=== PATIENT | male | born 1950 | race Caucasian/White ===

== ENCOUNTER → 2017-06-17 | Outpatient (CLI) | payer OTHER | LOC: GMAL 10:50 | PROVIDERS: ATTEND Family Medicine | DX: D51.3 Other dietary vitamin B12 deficiency anemia (principal); E55.9 Vitamin D deficiency, unspecified ==

== ENCOUNTER → 2017-12-08 | Outpatient (CLI) | payer OTHER | END | disposition home or self-care (01) | LOC: GMAL 10:27 | PROVIDERS: ATTEND Family Medicine | DX: D51.3 Other dietary vitamin B12 deficiency anemia (principal); Z12.5 Encounter for screening for malignant neoplasm of prostate; E55.9 Vitamin D deficiency, unspecified | CPT/HCPCS: 82306; 82607; G0103 ==

== ENCOUNTER → 2017-12-31 | Outpatient (CLI) | payer OTHER | LOC: GMAL 10:52 | PROVIDERS: ATTEND Family Medicine | DX: R97.20 Elevated prostate specific antigen [PSA] (principal) ==

== ENCOUNTER → 2018-11-17 | Outpatient (CLI) | payer OTHER | LOC: LAB.O 10:29 | PROVIDERS: ATTEND Internal Medicine Gastroenterology | DX: R94.5 Abnormal results of liver function studies (principal) ==

== ENCOUNTER → 2019-08-23 | Outpatient (CLI) | payer OTHER | LOC: GMAL 11:31 | PROVIDERS: ATTEND Family Medicine | DX: D51.3 Other dietary vitamin B12 deficiency anemia (principal); E55.9 Vitamin D deficiency, unspecified; I10 Essential (primary) hypertension; E11.9 Type 2 diabetes mellitus without complications; E78.49 Other hyperlipidemia; R97.20 Elevated prostate specific antigen [PSA] ==

== ENCOUNTER → 2019-09-14 | Outpatient (CLI) | payer OTHER | LOC: GMAL 10:51 | PROVIDERS: ATTEND Family Medicine | DX: R97.20 Elevated prostate specific antigen [PSA] (principal) ==

== ENCOUNTER → 2019-09-29 | Outpatient (CLI) | payer OTHER ==
--- NOTE | 2019-09-29 10:40 | MRI ---
EXAM DESCRIPTION: MRI left shoulder CLINICAL HISTORY: Left shoulder pain COMPARISON: None. TECHNIQUE: Multiplanar, multisequence MR images of the left shoulder FINDINGS: Moderate acromioclavicular osteoarthritis with deformity of the distal clavicle, likely remote posttraumatic. Small joint effusion. Marginal osteophyte from the distal clavicle indenting the supraspinatus. Lateral downsloping of the acromion with small acromial spur Subcoronal subdeltoid bursal fluid and synovitis/bursitis Supraspinatus tendinosis. Bursal surface fraying. Minimal cystic change in the horizontal facet greater tuberosity. Muscle volume is normal with grade 1 fatty streaking Infraspinatus tendon intact. Normal muscle volume and grade 1 fatty streaking. Teres minor tendon intact. Moderate muscle volume loss with severe grade 2 fatty infiltration, likely idiopathic chronic denervation. No abnormality of the deltoid. Narrow coracohumeral interval of 7 mm predisposing to chronic coracoid impingement of the subscapularis tendon. Tendinosis with low-grade partial articular and interstitial tear of the insertion. Minimal osseous irregularity and edema in the lesser tuberosity. Muscle volume is normal with grade 1 fatty infiltration Long head biceps tendon normal in the bicipital groove. Intra-articular impingement tendinosis. Degenerative tear of the anchor and superior labrum with intralabral signal and fraying along the base of the labrum with sublabral glenoid rim osteophyte and minimal edema. No acute labral detachment otherwise No high-grade glenohumeral chondrosis or chronic osteochondral lesion IMPRESSION: Acromioclavicular osteoarthritis. 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
== END ==
LOC: MRI 08:35
PROVIDERS: ATTEND Family Medicine
DX: M19.012 Primary osteoarthritis, left shoulder (principal); M75.32 Calcific tendinitis of left shoulder; M75.22 Bicipital tendinitis, left shoulder

== ENCOUNTER 2020-04-25 15:36 | Observation (INO) | payer OTHER ==
[~2020-04-25 15:36] MED LIST: DEXAMETHASONE INJ 10 MG/ML VIAL ONE; KETOROLAC TROMETHAMINE INJ 30 MG/ML VIAL ONE; LIDOCAINE 1% 10 ML VIAL INJ ONE; MAGNESIUM SULFATE INJ 1 GM/2 ML VIAL ONE; METOCLOPRAMIDE HCL INJ 10 MG/2 ML VIAL ONE; PROPOFOL 200 MG/20 ML VIAL IV ONE; SODIUM CHLORIDE 0.9% 50 ML VIAL ONE
[2020-04-25] MEDS ORDERED: SODIUM CHLORIDE 0.9% 1000ML 1,000 ML IVS ONE (15:45)
[2020-04-25] MEDS ORDERED: CEFEPIME 2 GM in SODIUM CHL 0.9% 100ML MINI-BAG 100 ML IVPB ONE (15:47)
[2020-04-25] MEDS ORDERED: ACETAMINOPHEN IV 1000MG 1,000 MG in PREMIX BOTTLE 1 BOTTLE IVPB ONE (15:47)
--- NOTE | 2020-04-25 15:57 | ED.PDOC ---
History of Present Illness - General Chief Complaint: Abdominal Pain Stated Complaint: RLQ abdominal pain x one day Time Seen by Provider: 04/25/20 15:42 Information Source: patient Exam Limitations: no limitations - History of Present Illness Initial Comments: 70 yo M with PMH sig for HTN, HLD, DM who presents with constant, nonradiating, RLQ pain onset this morning, described as a cramp, no alleviating or aggreviating factors. Denies f/c, cough, congestion, CP, SOB, COVID exposure, sick contacts, body aches, sore throat, n/v/d, constipation, urinary sx. Last NPO intake at 2pm, two pieces of toast. Review of Systems - Review of Systems Constitutional: Denies: chills, fever EENTM: States: no symptoms reported Respiratory: Denies: cough, short of breath Cardiology: Denies: chest pain, palpitations, syncope Gastrointestinal/Abdominal: States: abdominal pain. Denies: diarrhea, nausea, vomiting Genitourinary: Denies: dysuria, frequency, hematuria Musculoskeletal: Denies: back pain, muscle pain Skin: Denies: lesions, rash Neurological: Denies: headache, numbness, weakness Endocrine: Denies: increased thirst, increased urine Hematologic/Lymphatic: Denies: easy bleeding, easy bruising Family Medical History - Family History Mother Family History: Unknown Physical Exam - Physical Exam General Appearance: Alert, Comfortable, No apparent distress, Well Developed, Well Nourished Eyes, Ears, Nose, Throat Exam: normal ENT inspection Neck: full range of motion, supple Respiratory: chest non-tender, lungs clear, normal breath sounds, no respiratory distress, no accessory muscle use Cardiovascular/Chest: normal peripheral pulses, no edema, no gallop, no JVD, tachycardia - mild Peripheral Pulses: No deficit Gastrointestinal/Abdominal: tenderness - RLQ, guarding; no rebound, rigidity Male Genitalia: normal genitalia Back Exam: no CVA tenderness Extremity: normal range of motion, non-tender, normal inspection, no pedal edema Neurologic: no motor/sensory deficits, alert, normal mood/affect Skin Exam: normal color, warm/dry Progress - Progress Progress: 04/25/20 17:23 Discussed with radiologist, CT concerning for acute appendicitis. Dr. Samayoa at pt's bedside. Updated pt on the results, need for OR and admission. Pt agrees with plan. All questions and concerns addressed. Subsequently discussed with Dr. Carter, will take to OR in morning but will evaluate pt tonight and review imaging, requests zosyn and IV hydration. 04/25/20 17:26 Discussed with Rian, midlevel for admitting provider, accepts for admission. Shauna Banks MD Emergency Medicine Physician Billing Number [id number] - Results/Orders Results/Orders: 04/25/20 15:43 URINALYSIS Stat 04/25/20 15:47 Hold Metformin x 48Hrs [id number] 04/25/20 16:00 EKG STAT 04/25/20 16:30 BLOOD CULTURE Stat 04/25/20 17:27 ED Intent to Admit Routine Laboratory Results - last 24 hr 04/25/20 04/25/20 04/25/20 16:02 16:02 16:02 WBC 12.6 H RBC 4.82 Hgb 14.4 Hct 42.8 MCV 88.8 MCH 29.9 MCHC 33.7 RDW 15.2 H Plt Count 234 MPV 8.4 Absolute Neuts (auto) 10.10 H Absolute Lymphs (auto) 1.70 Absolute Monos (auto) 0.60 Absolute Eos (auto) 0.10 Absolute Basos (auto) 0.00 Neutrophils % 80.5 H Lymphocytes % 13.7 L Monocytes % 4.6 Eosinophils % 0.8 L Basophils % 0.4 Sodium 136 Potassium 3.9 Chloride 105 Carbon Dioxide 24 Anion Gap 10.9 L BUN 23 H Creatinine 0.89 BUN/Creatinine Ratio 25.8 H Random Glucose 140 H Serum Osmolality 278.0 Lactic Acid 1.5 Calcium 9.0 Total Bilirubin 0.7 AST 41 ALT 48 Alkaline Phosphatase 45 Serum Total Protein 7.5 Albumin 4.3 Globulin 3.2 Albumin/Globulin Ratio 1.3 CT abd/pelvis: EXAM DESCRIPTION: CT ABDOMEN AND PELVIS WITH CONTRAST CLINICAL HISTORY: RLQ pain COMPARISON: December 10, 2011 TECHNIQUE: CT of the abdomen and pelvis are performed during IV bolus administration of nonionic contrast. Oral contrast media was not administered This exam was performed according to our departmental dose-optimization program, which includes automated exposure control, adjustment of the mA and/or kV according to patient size and/or use of iterative reconstruction technique. FINDINGS: Lung bases demonstrate mild fibrotic lung disease but are otherwise clear with at least mild cardiomegaly present. Hepatomegaly with marked fatty infiltration of liver diffusely is present without focal cystic or solid mass. A well distended gallbladder without wall thickening or edema or visible stones or ductal dilation is noted. A small normal spleen is present. No significant abdominal or pelvic ascites seen. Right adrenal gland is unremarkable. The left adrenal gland demonstrates a 3.7 cm mass partially soft tissue density and partially fatty in appearance unchanged from 2012 study and most consistent with a benign adenoma. No further evaluation is recommended. Pancreas normally enhances without cyst or mass. The kidneys intensely enhance with no abnormality noted on the right. On the left a nonobstructing 1 cm calculus in a lower pole calyx is present without hydronephrosis. No cystic or solid lesions noted. Small and large bowel caliber is normal without obstruction or ileus. Extensive left colonic diverticulosis is noted. An inflammatory process along the posterior margin of the cecum and proximal ascending colon is present with at least a small segment of the indistinct enlarged appendix is present with a segment of the appendix appearing to be slightly greater than 1 cm in diameter. Acute appendicitis with inflammatory changes but no drainable abscess or large fluid collection suspected. Results telephoned to the emergency room physician at the time of interpretation. No free abdominal air or fluid noted. Distended bladder with marked prostatic hypertrophy is apparent. The anterior abdominal wall and inguinal regions are unremarkable. Marked degenerative change and moderate levoscoliosis of the lumbar spine apparent. Multilevel degenerative disc disease and likely significant spinal canal stenosis particularly at L2-3 and L3-4 suggested on sagittal reconstructions. IMPRESSION: 1. Right lower quadrant inflammatory process in the retrocecal and retrocolic region with fluid and air distended short segment of the appendix identified consistent with acute appendicitis. Free abdominal air or drainable fluid collection or abscess is not apparent. An appendicolith is not identified. 2. Nonobstructing 1 cm lower pole stone left kidney without hydronephrosis. 3. Marked hepatomegaly and fatty replacement of the liver. 4. 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 5. Extensive left colonic diverticulosis without acute diverticulitis. Electronically signed by: Shimon Hennessy MD 04/25/2020 5:23 PM CDT Vital Signs (72 hours) 04/25/20 04/25/20 04/25/20 15:40 15:43 16:30 Temperature 100.9 F H Pulse Rate [ 101 H 101 H 75 Pulse ox] Respiratory 18 18 21 Rate Blood Pressure 177/118 140/80 [L brachial] O2 Sat by Pulse 97 95 Oximetry 04/25/20 17:30 Temperature 101.9 F H Pulse Rate [ 81 Pulse ox] Respiratory 20 Rate Blood Pressure 144/85 [L brachial] O2 Sat by Pulse 95 Oximetry - EKG/XRAY/CT EKG: Sinus, no ST T wave changes Comments: NSR rate of 96, artifact Departure - Departure Clinical Impression: Hepatomegaly, Diverticulosis, Adrenal mass, Kidney stone Acute appendicitis Qualifiers: Acute appendicitis type: with localized peritonitis Appendicitis gangrene presence: without gangrene Appendicitis perforation presence: without pe rforation Appendicitis abscess presence: without abscess Qualified Code(s): K35.30 - Acute appendicitis with localized peritonitis, without perforation or gangrene Time of Disposition: 17:15 Disposition: Admit Patient Condition: Fair
[2020-04-25] MEDS ORDERED: SODIUM CHL 0.9% 100ML MINI-BAG 100 ML IVPB ONE (16:38)
[2020-04-25] MEDS ORDERED: ACETAMINOPHEN IV 1000MG 100 ML ONE (16:49)
--- NOTE | 2020-04-25 17:25 | CT ---
EXAM DESCRIPTION: CT ABDOMEN AND PELVIS WITH CONTRAST CLINICAL HISTORY: RLQ pain COMPARISON: December 10, 2011 TECHNIQUE: CT of the abdomen and pelvis are performed during IV bolus administration of nonionic contrast. Oral contrast media was not administered This exam was performed according to our departmental dose-optimization program, which includes automated exposure control, adjustment of the mA and/or kV according to patient size and/or use of iterative reconstruction technique. FINDINGS: Lung bases demonstrate mild fibrotic lung disease but are otherwise clear with at least mild cardiomegaly present. Hepatomegaly with marked fatty infiltration of liver diffusely is present without focal cystic or solid mass. A well distended gallbladder without wall thickening or edema or visible stones or ductal dilation is noted. A small normal spleen is present. No significant abdominal or pelvic ascites seen. Right adrenal gland is unremarkable. The left adrenal gland demonstrates a 3.7 cm mass partially soft tissue density and partially fatty in appearance unchanged from 2012 study and most consistent with a benign adenoma. No further evaluation is recommended. Pancreas normally enhances without cyst or mass. The kidneys intensely enhance with no abnormality noted on the right. On the left a nonobstructing 1 cm calculus in a lower pole calyx is present without hydronephrosis. No cystic or solid lesions noted. Small and large bowel caliber is normal without obstruction or ileus. Extensive left colonic diverticulosis is noted. An inflammatory process along the posterior margin of the cecum and proximal ascending colon is present with at least a small segment of the indistinct enlarged appendix is present with a segment of the appendix appearing to be slightly greater than 1 cm in diameter. Acute appendicitis with inflammatory changes but no drainable abscess or large fluid collection suspected. Results telephoned to the emergency room physician at the time of interpretation. No free abdominal air or fluid noted. Distended bladder with marked prostatic hypertrophy is apparent. The anterior abdominal wall and inguinal regions are unremarkable. Marked degenerative change and moderate levoscoliosis of the lumbar spine apparent. Multilevel degenerative disc disease and likely significant spinal canal stenosis particularly at L2-3 and L3-4 suggested on sagittal reconstructions. IMPRESSION: 1. Right lower quadrant inflammatory process in the retrocecal and retrocolic region with fluid and air distended short segment of the appendix identified consistent with acute appendicitis. Free abdominal air or drainable fluid collection or abscess is not apparent. An appendicolith is not identified. 2. Nonobstructing 1 cm lower pole stone left kidney without hydronephrosis. 3. Marked hepatomegaly and fatty replacement of the liver. 4. 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 5. Extensive left colonic diverticulosis without acute diverticulitis. Electronically signed by: Shimon Hennessy MD 04/25/2020 5:23 PM CDT
[2020-04-25] MEDS ORDERED: ACETAMINOPHEN IV 1000MG 100 ML IVPB ONE (18:00)
[2020-04-25] MEDS ORDERED: MORPHINE SULFATE INJ 10 MG/ML VIAL IV PRN (18:58)
[2020-04-25] MEDS ORDERED: GLUCAGON INJ 1 MG VIAL SUBCU PRN (20:17)
[2020-04-25] MEDS ORDERED: DEXTROSE 50% 25 GM/50 ML SYG IV PRN (20:17)
[2020-04-25] MEDS ORDERED: SODIUM CHL 0.9% 50ML MIN-BAG+ 50 ML IVPB ONE (20:36)
[2020-04-25] MEDS: cefOXitin SODIUM 1 GM in SODIUM CHL 0.9% 50ML MIN-BAG+ 50 ML IVPB SCH (20:43)
[2020-04-25] MEDS: KCL 20MEQ/D5 1/2NS 1,000 ML IVS PRN (20:52)
[2020-04-25] MEDS: LISINOPRIL 10 MG TAB PO SCH (20:53)
[2020-04-25] MEDS: INSULIN LISPRO 100 UNITS/ML PEN SUBCU SCH (21:00)
[2020-04-25] MEDS: GLIMEPIRIDE 2 MG TAB PO SCH (21:38)
[2020-04-25] MEDS ORDERED: SODIUM CHLORIDE 0.9% (FLUSH) 10 ML SYG IV PRN (21:47)
[2020-04-25] MEDS ORDERED: IV SET AND CAP CHANGE INJ INJ SCH (22:00)
[2020-04-26] MEDS: cefOXitin SODIUM 1 GM in SODIUM CHL 0.9% 50ML MIN-BAG+ 50 ML IVPB SCH ×3 (00:31→12:36)
[2020-04-26] MEDS ORDERED: SODIUM CHL 0.9% 50ML MIN-BAG+ 50 ML IVPB ONE (04:20)
[2020-04-26] MEDS ORDERED: PANTOPRAZOLE SODIUM IV 40 MG VIAL IV ONE (05:00)
[2020-04-26] MEDS ORDERED: BUPIVACAINE 0.5% W/EPI 30 ML VIAL INJ ONE (06:07)
[2020-04-26] MEDS: INSULIN LISPRO 100 UNITS/ML PEN SUBCU SCH ×2 (06:21→12:07)
[2020-04-26] MEDS ORDERED: fentaNYL CITRATE INJ 50 MCG/ML 2 ML AMP ONE (06:31)
[2020-04-26] MEDS ORDERED: MIDAZOLAM INJ 2 MG/2 ML VIAL ONE ×2 (06:31→06:52)
[2020-04-26] MEDS ORDERED: SUGAMMADEX SODIUM 200 MG/2 ML VIAL IV ONE (06:31)
[2020-04-26] MEDS ORDERED: KETAMINE HCL 100 MG/ML VIAL ONE (06:31)
[2020-04-26] MEDS ORDERED: ROCURONIUM BROMIDE 10 MG/ML VIAL ONE (06:32)
[2020-04-26] MEDS: GLIMEPIRIDE 2 MG TAB PO SCH (07:17)
[2020-04-26] MEDS ORDERED: ELECTROLYTE-A 1,000 ML IVS ONE (07:42)
--- NOTE | 2020-04-26 07:51 | CONS ---
SUPERVISING PHYSICIAN: Shimon Monaco MD CHIEF COMPLAINT: Right lower quadrant abdominal pain and acute appendicitis. REASON FOR CONSULTATION: Medical consultation, preoperative evaluation for laparoscopic appendectomy. HISTORY OF PRESENT ILLNESS: Mr. Palomino is a 70-year-old male patient who presented to the Emergency Room today with complaints of right lower quadrant pain. He endorses that the pain started this morning and was persistent in its onset, nothing he could do would alleviate the pain. He does have a history of hypertension, hyperlipidemia and diabetes mellitus. He denies any congestion, chest pain or shortness of breath or any high risk or exposure to COVID-19 contacts, no nausea, vomiting or diarrhea or constipation. His last intake prior to coming to the Emergency Room was around 2 o'clock, he had 2 pieces of toast. On initial presentation, he was running a fever of 101.9 but showing to be hemodynamically stable with a blood pressure of 144/85, heart rate 81, oxygen saturation 95% on room air. Laboratory studies did show he had a white count of12,600 with a left shift. Chemistries showed a slightly elevated BUN, otherwise all electrolytes, creatinine and liver functions were within normal limits. Lactic acid 1.5. Urinalysis just showed a small amount of blood with 5 to 10 RBCs and trace leukocyte esterase. He had a CT of the abdomen and pelvis in the Emergency Room prior to admission with contrast and per radiology interpretation was note of findings consistent with acute appendicitis but no free abdominal air or drainable fluid collection or abscess apparent. After CT findings and clinical presentation consistent with acute appendicitis, Dr. Carter, general surgeon, was consulted in the Emergency Room and recommended the patient be taken to the operating room either today or tomorrow, thus patient is going to be admitted and placed in observation for further workup and surgical clearance with anticipated laparoscopic appendectomy. The patient was stable at time of admission. PAST MEDICAL HISTORY: 1. Hyperlipidemia. 2. Hypertension 3. Type 2 diabetes mellitus poorly controlled with last A1C at 7.1. 4. History of concussion after a fall in 2011. PAST SURGICAL HISTORY: 1, Left knee arthroscopy for torn cartilage. 2. Tonsillectomy. 3. Cervical spine surgery for C5 herniated disk. 4. Right knee, partial medial meniscectomy. 5. Right shoulder rotator cuff surgery with distal clavicle resection, subacromial decompression open tendinosis of the long head of the biceps tendon. 6. Lumbar epidural steroid injection. 7. Bilateral knee medial compartmental arthroplasty in 2019. CURRENT MEDICATIONS: 1. Lisinopril 20 mg twice a day. 2. Metformin 500 mg twice a day. 3. Simvastatin 40 mg q.h.s. 4. Glimepiride 4 mg b.i.d. 5. Diltiazem extended release 360 mg daily. 6. Troglitazone 30 mg daily. ALLERGIES: Amlodipine, Jardiance. FAMILY HISTORY: Father at age 24 secondary to sudden cardiac . Mother at 63, had breast cancer and heart problems. He has 3 brothers, all healthy. One daughter is healthy, one son is healthy. SOCIAL HISTORY: The patient works for the [employer] in [employer]. He is , at age 53 from breast cancer. He has 2 children. He has never smoked and does not drink alcohol but on a very rare occasion. He lives in [place], [place]. He denies any illicit drug use. REVIEW OF SYSTEMS: CONSTITUTIONAL: Positive for fever, chills, denies any general malaise or unexplained weight loss. HEENT: Denies headaches, vision changes, sore throat, nasal congestion, earache. RESPIRATORY: Denies coughing, shortness of breath or wheezing. CARDIOVASCULAR: Denies chest pain, palpitations, syncopal episodes. GI: As noted in history of present illness, right lower quadrant abdominal pain. Denies nausea, vomiting or diarrhea. : Denies dysuria, hematuria or polyuria. MUSCULOSKELETAL: Denies back pain, muscle pain or general arthralgias. SKIN: Denies lesions, rashes, moles or unexplained changes. NEUROLOGICAL: Denies headaches, numbness, weakness, ataxia, seizures or other deficits. HEMATOLOGIC: Denies easy bruising, unexplained bleeding or transfusion reactions. PHYSICAL EXAMINATION: VITAL SIGNS: Temperature 101.9, heart rate 81, blood pressure 144/85, respirations 20, oxygen saturation 95% on room air. GENERAL: The patient is resting comfortably, did not appear to be in acute distress. He is alert. HEENT: Tympanic membranes clear bilaterally. Oropharynx pink and moist without lesions. NECK: Supple, non-tender, full range of motion, no jugular venous distention. HEART: Regular rate and rhythm without appreciable murmurs, rubs, or gallops. ABDOMEN: Soft with tenderness noted to the right lower quadrant with some guarding but no rebound, rigidity or peritoneal signs. BACK: No CVA tenderness or vertebral tenderness. EXTREMITIES: No cyanosis, clubbing, or edema. NEUROLOGIC: Cranial nerves II through XII grossly intact. Facial features symmetrical. Extraocular movements within normal limits, no notable nystagmus. He was alert and oriented x 3. LABORATORY: White count elevation at 12,600, hemoglobin 14.4, hematocrit 42.8, platelet count 234,000, differential does show a left shift. Chemistries show normal electrolytes. Anion gap 10.9, BUN 23, creatinine 0.89, glucose 144, lactic acid 1.5. Liver functions, calcium and bilirubin were all within normal limits. Urinalysis showed a small amount of blood with trace of leukocyte esterase with microscopic revealing 5 to 10 RBCs, 1 to 3 WBCs, no epithelials, no bacteria. He did have a group A strep that was positive. MICROBIOLOGY: Blood cultures are negatives as of admission. Influenza A and B by PCR were pending. RADIOLOGY: Chest x-ray showed no cardiopulmonary abnormalities per radiologic interpretation. Abdominopelvic CT per radiologic interpretation showed findings consistent with acute appendicitis, but no abscess, free abdominal air or drainable collection. There was also note of nonobstructing 1 cm lower pole stone in the left kidney without hydronephrosis. There was also noted some marked hepatomegaly with fatty replacement of the liver. 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 EKG in the Emergency Room showed a normal sinus rhythm with no ST or T wave changes to acute ischemic or injury pattern. No acute changes when compared to EKG done 01/17/19. Heart rate 96, QT interval was 362 with QTC of 457, [place] interval was within normal limits. IMPRESSION: 1. Acute appendicitis with CT findings consistent with acute appendicitis. 2. Group A strep pharyngitis with positive strep screen. 3. Diabetes mellitus, type 2, on oral therapy. 4. Hypertension. 5. Chronic diverticulosis without any acute findings of diverticulitis on current CT scan. 6. 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 7. Marked steatosis of the liver, needs to be followed as an outpatient. 8. Incidental finding of a nonobstructive nephrolithiasis of the left kidney without any mention of hydronephrosis. PLAN: Mr. Palomino is placed in observation for anticipation of a laparoscopic appendectomy in the morning. Dr. Carter has consulted with us to help with management of his diabetes and other medical issues. At this point, the patient is showing no complicating factors and should do well operatively. We will continue to follow his blood sugars and blood pressure and management of his chronic medications preoperatively and postoperatively. Dr. Carter has ordered IV fluids and antibiotic coverage with Cefoxitin q.6h. He will be provided with pain management as needed. He has order for Protonix in the morning preoperatively with anesthesia. We will review his medications and resume those as appropriate to care postoperatively. He will be on DVT prophylaxis postoperatively as needed. I anticipate though that he will probably go home postoperatively, but we will defer that management to Dr. Catrer. We will continue to follow the patient as needed until he can be managed as an outpatient. #[id number] MTDD
[2020-04-26] MEDS ORDERED: HYDROmorphone HCL INJ 2 MG/ML VIAL ONE (08:14)
[2020-04-26] MEDS: ELECTROLYTE-A 1,000 ML IVS ONE ×2 (08:30→08:33)
[2020-04-26] MEDS: LISINOPRIL 10 MG TAB PO SCH (08:43)
[2020-04-26] MEDS ORDERED: GLIMEPIRIDE 4 MG PO SCH (09:00)
[2020-04-26] MEDS ORDERED: DILTIAZEM CD 300 MG PO SCH (09:00)
[2020-04-26] MEDS ORDERED: [UNRECOGNIZED DRUG - OTHER] PO SCH ×2 (09:00)
[2020-04-26] MEDS ORDERED: PIOGLITAZONE HCL 30 MG PO SCH (09:00)
[2020-04-26] MEDS ORDERED: NON-FORMULARY MEDICATION 1 EA MIS (Lisinopril [Lisinopril] 20 MG) PO SCH (09:00)
[2020-04-26] MEDS: KCL 20MEQ/D5 1/2NS 1,000 ML IVS PRN (12:35)
[2020-04-26 13:35] VITALS: BP 118/78; TEMP 98; O2SAT 94
[2020-04-26] MEDS ORDERED: GLIMEPIRIDE 2 MG TAB PO SCH (17:00)
[2020-04-26] MEDS ORDERED: SIMVASTATIN 20 MG TAB PO SCH (21:00)
[2020-04-26] MEDS ORDERED: LISINOPRIL 10 MG TAB PO SCH (21:00)
--- NOTE | 2020-04-27 08:04 | DS ---
SUPERVISING PHYSICIAN: Shimon Monaco MD ADMISSION DIAGNOSIS: 1. Acute appendicitis. 2. Group A strep pharyngitis with positive strep screen. 3. Diabetes mellitus, type 2, on oral therapy. 4. Hypertension. 5. Chronic diverticulosis without any acute findings of diverticulitis on CT scan. 6. 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 7. Marked steatosis of the liver, needs to be followed as an outpatient. 8. Incidental finding of a nonobstructive nephrolithiasis of the left kidney without any mention of hydronephrosis. DISCHARGE DIAGNOSIS: 1. Acute appendicitis, postoperative day 0 for an open appendectomy with no complications. 2. Group A strep pharyngitis with positive strep screen. 3. Diabetes mellitus, type 2, on oral therapy. 4. Hypertension. 5. Chronic diverticulosis without any acute findings of diverticulitis on CT scan. 6. 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 7. Marked steatosis of the liver, needs to be followed as an outpatient. 8. Incidental finding of a nonobstructive nephrolithiasis of the left kidney without any mention of hydronephrosis. REASON FOR HOSPITALIZATION: Mr. Palomino is a 70-year-old male patient who presented to the Emergency Room today with complaints of right lower quadrant pain. He endorses that the pain started this morning and was persistent in its onset, nothing he could do would alleviate the pain. He does have a history of hypertension, hyperlipidemia and diabetes mellitus. He denies any congestion, chest pain or shortness of breath or any high risk or exposure to COVID-19 contacts, no nausea, vomiting or diarrhea or constipation. His last intake prior to coming to the Emergency Room was around 2 o'clock, he had 2 pieces of toast. On initial presentation, he was running a fever of 101.9 but showing to be hemodynamically stable with a blood pressure of 144/85, heart rate 81, oxygen saturation 95% on room air. Laboratory studies did show he had a white count of12,600 with a left shift. Chemistries showed a slightly elevated BUN, otherwise all electrolytes, creatinine and liver functions were within normal limits. Lactic acid 1.5. Urinalysis just showed a small amount of blood with 5 to 10 RBCs and trace leukocyte esterase. He had a CT of the abdomen and pelvis in the Emergency Room prior to admission with contrast and per radiology interpretation was note of findings consistent with acute appendicitis but no free abdominal air or drainable fluid collection or abscess apparent. After CT findings and clinical presentation consistent with acute appendicitis, Dr. Carter, general surgeon, was consulted in the Emergency Room and recommended the patient be taken to the operating room either today or tomorrow, thus patient is going to be admitted and placed in observation for further workup and surgical clearance with anticipated laparoscopic appendectomy. The patient was stable at time of admission. PROCEDURES: Laparoscopic appendectomy, transitioned to an open appendectomy by general surgeon, Roberto Carlos Carter MD. Please see his operative report for details. LABORATORY: White count on admission 12,600, hemoglobin 14.4, hematocrit 42.8, platelet count 234,000. Differential showed a small left shift. Chemistries showed normal electrolytes. BUN slightly elevated at 23. Blood sugars ranged between 140 to 230. Liver functions were all within normal limits. Lactic acid normal at 1.5. Urinalysis showed a small amount of blood, trace of leukocyte esterase and 5 to 10 RBCs, 1 to 3 WBCs, no epithelials, no bacteria. Group A strep positive. MICROBIOLOGY: Blood cultures negative at 24 hours. Influenza A and B by PCR negative . RADIOLOGY: Abdominopelvic CT per radiologic interpretation showed findings consistent with acute appendicitis, but no abscess, free abdominal air or drainable collection. There was also note of nonobstructing 1 cm lower pole stone in the left kidney without hydronephrosis. There was also noted some marked hepatomegaly with fatty replacement of the liver. 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 Chest x-ray showed no cardiopulmonary abnormalities per radiologic interpretation. HOSPITAL COURSE: Mr. Palomino was admitted last night on 04/25/20 and discharged on 04/26/20 for acute appendicitis. He did have a fever on admission with a temperature of 101.9. He has been afebrile now for 24 hours postoperatively. He did have a positive strep screen which was treated with second generation cephalosporin while he was in the hospital and transitioned to amoxicillin on discharge. Dr. Carter did initially a laparoscopic procedure for acute appendicitis, but had to take it to an open appendectomy due to the fact that I believe he had some difficulty locating the appendix. Please see that report for details. The patient had no other complications intraoperatively or postoperatively with ambulation, was taking good oral intake without any complications, was showing to be stable and was felt clinically stable enough to continue with outpatient management and followup with Dr. Carter and Dr. Becerra. DISCHARGE ASSESSMENT: VITAL SIGNS: Temperature 98. Pulse 72. Blood pressure 118/78. Respirations 16. Saturation 94% on room air. GENERAL: The patient was resting comfortably and did not appear to be in any acute distress. He was alert. CHEST: Lungs clear to auscultation. HEART: Regular rate and rhythm. ABDOMEN: Soft with some tenderness at the surgical site. There was a surgical incision in the right lower quadrant with Steri-Strips in place, clean and dry. No rebound tenderness, no peritoneal signs. EXTREMITIES: No edema. NEUROLOGIC: Alert and oriented x3. PLAN: Mr. Palomino was discharged on 04/26/[address] Carter as well as Dr. Becerra. He was treated for positive strep screen on discharge with amoxicillin for 10 days. He is to followup with in 2 weeks and call the office for an appointment. He is to advance his diet as tolerated. He can shower, but no tub baths after 48 hours and not do any heavy lifting, twisting or strenuous exercise until cleared by Dr. Carter. All medications on discharge were continued as prior to hospitalization. New medications at discharge included amoxicillin 500 mg b.i.d. for 10 days, no refills. DISPOSITION: The patient is discharged home. CONDITION ON DISCHARGE: Stable and improved. #[id number] [facility]
[2020-04-27] MEDS ORDERED: PIOGLITAZONE 15 MG TAB PO SCH (09:00)
--- NOTE | 2020-05-09 15:06 | OP ---
DATE OF PROCEDURE: 04/25/20 PREOPERATIVE DIAGNOSIS: Acute appendicitis. POSTOPERATIVE DIAGNOSIS: Acute appendicitis. PROCEDURE: Laparoscopic converted to open appendectomy due to extreme inflammation. SURGEON: Roberto Carlos Carter MD ANESTHESIA: General and local. COMPLICATIONS: None. ESTIMATED BLOOD LOSS: Minimal. SPECIMEN: Appendix. PLAN: Admit. INDICATION: As stated. PROCEDURE: General anaesthesia was induced. He was prepped and draped in sterile fashion. 0.5% Marcaine with epinephrine was used along the incision sites. While maintaining upward traction, a ani was made in the base of the umbilicus. A Veress needle was introduced. There was free flow of fluid into the peritoneal cavity which was insufflated to an appropriate level with CO2 gas. A 5 mm trocar was placed followed by the camera. There was no evidence of bleeding or bowel injury. The suprapubic and right lower quadrant ports were placed under direct vision without difficulty. The appendix was initially not visualized. There was inflammation and scarring in the area. We freed up the terminal ileum and lateral colon from the white line of Toldt, rotating the colon medially. We could almost see the base of the appendix, but not quite. It was stuck down in the tissues. I even extended the right lower quadrant incision to insert an index finger and try blunt dissection. With this, we were still unable to free up the appendix. No obvious abscess was seen at this time, but the appendix itself as viewed by the CT scan was very short. I was not able to free it up laparoscopically without risking damage to the colon. At this point, a right lower quadrant transverse incision was made right over the area. Once the abdominal cavity was entered, we were able to bring up the cecum and evaluate it. The base of the cecum was identified. I was able to get around it with a right angle and tie it off with a double Silk suture and then gently follow that and dissect off the appendix with the mesoappendix and ultimately get the appendix out. The area was irrigated. There was good hemostasis. Aspirate was clear. The peritoneum was then closed with a running 3-0 Vicryl with care not to get any of the underlying structures. The muscle was then closed in 2 layers with 0 PDS suture. The wound was irrigated extensively and closed with richard. The remaining trocar sites were closed. 0 Vicryl was used in the suprapubic to close that fascia. It was airtight and nonbleeding. Dressings were applied. He was awakened and taken to Recovery to be admitted. #[id number] [facility]
== END 2020-04-26 14:30 | disposition home or self-care (01) ==
LOC: ER 15:36 → MS 18:02
PROVIDERS: ADMIT Surgery; ATTEND Nurse Practitioner Family
DX: K35.890 Other acute appendicitis without perforation or gangrene (principal); Z53.31 Laparoscopic surgical procedure converted to open procedure; J02.0 Streptococcal pharyngitis; E11.65 Type 2 diabetes mellitus with hyperglycemia; I10 Essential (primary) hypertension; E78.5 Hyperlipidemia, unspecified; K57.30 Diverticulosis of large intestine without perforation or abscess without bleeding; K76.0 Fatty (change of) liver, not elsewhere classified; D35.02 Benign neoplasm of left adrenal gland; N20.0 Calculus of kidney; E66.9 Obesity, unspecified; Z68.30 Body mass index [BMI] 30.0-30.9, adult; Z79.84 Long term (current) use of oral hypoglycemic drugs; Z79.899 Other long term (current) drug therapy; Z88.8 Allergy status to other drugs, medicaments and biological substances
CPT/HCPCS: 96366 ×2; 96367; 96365; 96375 ×2; 96376; J0694 ×4; J3010; J1170; J1885; J2765; J2270; J3490; J7030; J3475; J1100; J2250 ×2; J0692; J7050 ×6; A4216; 80053; 82948 ×4; 87880; 36415 ×3; 81001; 85025; 87040 ×2; 36416 ×4; 83605; 88304; 71046; 74177; 94760; 99285; 93005; G0378; 87502; 44950; 00840

== ENCOUNTER → 2020-10-29 | Outpatient (CLI) | payer OTHER | LOC: GMAL 10:31 | PROVIDERS: ATTEND Family Medicine | DX: I10 Essential (primary) hypertension (principal); R53.83 Other fatigue; E11.9 Type 2 diabetes mellitus without complications; E78.49 Other hyperlipidemia ==